=== PATIENT | female | born 1945 | race Caucasian/White ===

== ENCOUNTER 2016-04-20 19:59 | Emergency (ER) | payer BC, OTHER ==
[2016-04-20 20:22] VITALS: BP 154/97; PULSE 76; TEMP 98.5; BMI 36.0
[2016-04-20] MEDS ORDERED: KETOROLAC TROMETHAMINE 30 MG/1 ML VIAL IVPUSH ONE (20:22)
[2016-04-20] MEDS ORDERED: CYCLOBENZAPRINE HCL 10 MG TABLET (FP) PO ONE (20:22)
[2016-04-20] MEDS ORDERED: CYCLOBENZAPRINE HCL 10 MG TABLET (FP) ONE (20:27)
[2016-04-20] MEDS ORDERED: KETOROLAC TROMETHAMINE 30 MG/1 ML VIAL ONE (20:27)
--- NOTE | 2016-04-20 20:31 | PDOC ---
History of Present Illness <Matti Mcfadden - Last Filed: 04/20/16 20:40> - History of Present Illness Initial Comments: 04/20/16 20:39 - History of Present Illness Initial Comments: 04/20/16 20:36 The patient is a 71 year old female, with a significant past medical history of HTN, HLD, DM, sleep apnea and GERD, who presents to the emergency department with neck stiffness and pain since monday. She reports her symptoms had a sudden onset, occurring while she was sitting down and folding the laundry. She reports on monday having a burning sensation coming from her right clavicle radiating into her right sided neck and radiating over her right head. She denies having any more clavicle pain, but reports since its onset her pain has been constant in her right neck/head, ranking her pain a 7/10 in pain intensity. She reports her neck/head pain is often made worse when she is lying down, or turning her head from side to side. She denies any numbness and tingling in her LE/UE. She reports being unable to sleep secondary to neck pain and spasm. She denies any recent injury or trauma. She denies recent fevers, chills, headache or dizziness. She denies recent nausea, vomit, diarrhea or constipation. She denies recent dysuria, frequency, urgency or hematuria. She denies recent chest pain or shortness of breath. She denies any other complaints at this time, and the remainder of the review of systems is negative Allergies: NKDA Family History: [place] (maternal and brother) Social history: Nonsmoker. <Matti Mcfadden - Last Filed: 04/20/16 20:36> <Ivy Fontenot - Last Filed: 04/23/16 20:15> - General Chief Complaint: Pain, Acute Stated Complaint: STIFF NECK SINCE MONDAY Time Seen by Provider: 04/20/16 20:09 Past History <Matti Mcfadden - Last Filed: 04/20/16 20:40> - Past Medical History Diabetes: Yes HTN: Yes Hypercholesterolemia: Yes Thyroid Disease: Yes Other medical history: PARATHYROIDISM - Psycho/Social/Smoking Cessation Hx Suicidal Ideation: No Smoking History: Current every day smoker Number of Cigarettes Smoked Daily: 5 Information on smoking cessation initiated: Yes 'Breaking Loose' booklet given: 04/20/16 Hx Alcohol Use: No Drug/Substance Use Hx: No Substance Use Type: None <Ivy Fontenot - Last Filed: 04/23/16 20:15> - Past Medical History Allergies/Adverse Reactions: Allergies Allergy/AdvReac Type Severity Reaction Status Date / Time No Known Allergies Allergy Verified 04/20/16 20:00 Home Medications: Ambulatory Orders Aspirin [Seligman Aspirin] 81 mg PO DAILY 04/20/16 Atenolol [Tenormin -] 100 mg PO DAILY 04/20/16 Atorvastatin Ca [Lipitor] 40 mg PO HS 04/20/16 Cyclobenzaprine HCl [Flexeril 10 mg] 5 mg PO TID PRN #14 tablet 04/20/16 Lansoprazole [Prevacid] 30 mg PO DAILY 04/20/16 Lisinopril [Prinivil] 20 mg PO DAILY 04/20/16 *Physical Exam - Vital Signs Last Vital Signs Temp Pulse Resp BP Pulse Ox 98.5 F 76 18 154/97 96 04/20/16 20:09 04/20/16 20:09 04/20/16 20:09 04/20/16 20:09 04/20/16 20:09 <Matti Mcfadden - Last Filed: 04/20/16 20:40> - Vital Signs Last Vital Signs Temp Pulse Resp BP Pulse Ox 98.5 F 76 18 154/97 96 04/20/16 20:09 04/20/16 20:09 04/20/16 20:09 04/20/16 20:09 04/20/16 20:09 - Physical Exam Comments: 04/20/16 20:32 Physical exam Last Vital Signs Temp Pulse Resp BP Pulse Ox 98.5 F 76 18 154/97 96 04/20/16 20:09 04/20/16 20:09 04/20/16 20:09 04/20/16 20:09 04/20/16 20:09 GENERAL: The patient is awake, alert, and fully oriented, and in no apparent distress. HEAD: Normal with no signs of trauma. EYES: Sclera anicteric, conjunctiva normal ENT: Moist mucous membranes NECK: There is no C-spine tenderness to palpation There is right lateral trapezius muscle spasm, from the shoulder to the back of the head and right sternocleidomastoid spasm on the clavicle to the neck. There is no T-spine tenderness Patient is able to slowly and with some pain turn her neck from side to side There is no meningismus appears to be more torticollis LUNGS: Breath sounds equal, clear to auscultation bilaterally. No wheezes, and no crackles. HEART: Regular rate and rhythm, normal S1 and S2 without murmur, rub or gallop. ABDOMEN: Soft, nontender, normoactive bowel sounds. No guarding, no rebound. No masses appreciated. EXTREMITIES: Normal range of motion, no edema. No clubbing or cyanosis. No cords, erythema, or tenderness. NEUROLOGICAL: Cranial nerves II through XII grossly intact. Normal speech, normal gait. Motor 5 out of 5 and equal in the upper and lower extremities bilaterally Grossly nonfocal neurologic exam PSYCH: Normal mood, normal affect. SKIN: Warm, Dry, normal turgor, no rashes or lesions noted. <Ivy Fontenot - Last Filed: 04/23/16 20:15> ED Treatment Course - RADIOLOGY Radiology Studies Ordered: Category Date Time Status CERVICAL SPINE CT W/O CONTR [CT] Stat CT Scan 04/20/16 20:[address] WITHOUT CONTRAST [CT] Stat CT Scan 04/20/16 20:23 Ordered <Ivy Fontenot - Last Filed: 04/23/16 20:15> Medical Decision Making - Medical Decision Making 04/20/16 20:27 71-year-old female with past medical history of hypertension, hyperlipidemia, GERD, diabetes on metformin, and hyperparathyroidism She states that on Monday she was folding laundry, and she had the spontaneous onset of some stiffness in the muscles of her right neck from her clavicle up to the right posterior head She states the pain is worse with musculoskeletal maneuvers She denies any fall or injury She was not recently at [email or web address], did not have her neck flipped back She states the pain is constant and it hurts to turn her head side to side She denies any fevers or chills, she denies any numbness or tingling in her arms or legs, she denies any cold walking, she denies any flu symptoms 04/20/16 20:35 Torticollis-like symptoms, with evidence of right lateral trapezius and right sternal cleidomastoid muscle spasm No trauma, cough, recent visit to the [email or web address], or other injury 04/20/16 22:16 CT scan of the head without NAD CT scan of the C-spine There is moderate to marked right C2-C3 and C3-C4 degenerative facet arthropathy noted There is multilevel DJD, and disc space narrowing No gross disc herniation is noted There is multilevel central canal stenosis Patient feeling much better after Toradol and Flexeril, able to move much better Impression-neck muscle spasm and DJD of the neck <Ivy Fontenot - Last Filed: 04/23/16 20:15> *DC/Admit/Observation/Transfer <Matti Mcfadden - Last Filed: 04/20/16 20:40> <Ivy Fontenot - Last Filed: 04/23/16 20:15> Diagnosis at time of Disposition: Muscle spasms of neck, Arthritis of neck - Discharge Dispostion Disposition: HOME Condition at time of disposition: Improved - Prescriptions Prescriptions: Cyclobenzaprine HCl [Flexeril 10 mg] 5 mg PO TID PRN #14 tablet PRN Reason: Muscle Spasms - Patient Instructions Printed Discharge Instructions: DI for Neck Sprain Additional Instructions: Motrin [id number]-every 8 hours Flexeril-muscle relaxer-every 8 hours-this medication may cause drowsiness-do not drive when taking this medication Warm compresses and rest Followup with your primary care physician in 24-48 hours Return immediately if you worsen in any way Take your medications as directed
== END 2016-04-20 22:34 | disposition home or self-care (01) ==
LOC: FER 19:59
PROC: 3E0333Z Introduction of Anti-inflammatory into Peripheral Vein, Percutaneous Approach (ICD-10-PCS; principal; 2016-04-20)
DX: M62.838 Other muscle spasm (principal); M13.80 Other specified arthritis, unspecified site
CPT/HCPCS: 70450-TC; 72125-TC; 96374; 99282-25